=== PATIENT | female | born 1950 | race Caucasian/White ===

== ENCOUNTER 2016-02-20 17:24 | Emergency (ER) | payer MEDICARE, OTHER ==
[2016-02-20] MEDS ORDERED: LORAZEPAM 2 MG/ML 1ML SDV ONE (17:52)
[2016-02-20] MEDS ORDERED: SODIUM CHLORIDE 0.9% 1,000 ML ONE (18:07)
[2016-02-20 18:25] LABS: ABSOLUTE NEUTROPHIL COUNT 4.3 K/mm3 (1.8-7.7); BASO % 0.5 % (0.2-1.0); EOS # 0.1 (0.0-0.5); EOS % 1.1 % (0.9-2.9); HEMATOCRIT 42.8 % (37.0-47.0); HEMOGLOBIN 14.1 gm/l (12.0-16.0); IMM NEUT% 0.3 % (0-1); LYMPH # 2.6 (1.0-4.8); LYMPH % 34.9 % (15-45); MEAN CELL VOLUME 86.8 fl (81.0-99.0); MEAN CORPUSCULAR HEMOGLOBIN 28.6 pg (27.0-31.0); MEAN CORPUSCULAR HGB CONC 32.9 g/dl (33.0-37.0); MEAN PLATELET VOLUME 10.7 fl (7.4-10.4); MONO # 0.5 (0.0-0.8); MONO % 6.7 % (4-12); NEUT % 56.5 % (43-75); PLATELET COUNT 266 K/mm3 (130-400); RED CELL DISTRIBUTION WIDTH 12.7 % (11.5-14.5)
[2016-02-20 18:40] LABS: CALCIUM 10.1 mg/dL (8.6-10.3)
[2016-02-20 19:13] LABS: SPECIFIC GRAVITY 1.015 (1.001-1.030); URINE BILIRUBIN NEGATIVE (NEGATIVE); URINE BLOOD NEGATIVE (NEGATIVE); URINE GLUCOSE (UA) NEGATIVE (NEGATIVE); URINE LEUKOCYTE ESTERASE NEGATIVE (NEGATIVE); URINE NITRITE NEGATIVE (NEGATIVE); URINE PROTEIN TRACE (NEGATIVE); URINE UROBILINOGEN NORMAL (0-1 mg/dl)
[2016-02-20 19:17] LABS: URINE APPEARANCE CLEAR; URINE COLOR YELLOW
== END 2016-02-20 20:22 | disposition home or self-care (01) ==
LOC: ED 17:24
DX: I16.0 Hypertensive urgency (principal); R51 Headache; Z73.3 Stress, not elsewhere classified; Z86.73 Personal history of transient ischemic attack (TIA), and cerebral infarction without residual deficits
CPT/HCPCS: 85025; 80048; 81003; 99284; 96374; 96361 ×2; 93005; 99283; J2060; J7030